=== PATIENT | male | born 1955 | race Caucasian/White ===

== ENCOUNTER 2020-04-14 21:40 | Emergency (ER) | payer OTHER ==
[~2020-04-14 21:40] MED LIST: ACID REDUCER75 MG PO; LISINOPRIL-HCT1 EAC1 PO; MELOXICAM15 MG PO; OXYCODON-ACETA1 EAC1 PO; PERCOCET 10-321 EACH PO
[2020-04-15] MEDS ORDERED: LODINE CAP 300300 MG PO (03:03)
[2020-04-15] MEDS ORDERED: KEFLEX CAP 500500 MG PO (03:03)
[2020-04-15] MEDS ORDERED: BACTRIM DS TAB1 EACH PO (03:03)
== END 2020-04-15 03:50 | disposition home or self-care (01) ==
LOC: ER1 21:40
DX: L02.414 Cutaneous abscess of left upper limb (principal); L03.114 Cellulitis of left upper limb; I10 Essential (primary) hypertension
CPT/HCPCS: 10060; 87070; 87205; 99283